=== PATIENT | male | born 1965 | race Caucasian/White ===

== ENCOUNTER 2019-03-27 03:22 | Inpatient (IN) ==
--- NOTE | 2019-03-27 07:53 | Internal Med History&Physical ---
Date of Encounter: 03/27/19 Time of Encounter: 07:17 Internal Medicine - H&P: HPI Chief complaint: Fever, cough Admitted From: Emergency Dept ([facility]) History of present illness: Lisa Cabral is a 53 M w hx HIV, MS c/b suprapubic cath, DVT/PE, anx/dep, who p/w fever. Pt states that yesterday he felt hot and sweaty, took temp and was 101. [place] listless/malaise all day and didn't even get on his computer, which he said was unusual. He Says he also developed a mild cough, productive of some green sputum. No sore throat, sinus pain or congestion, CP, palpitations, abd pain, N/V, myalgias, or leg pain or swelling. He endorses good compliance with his coumadin saying his home INR was 2.1 most recently. He does note having several infections in the past, mostly urine, but per review has had 2 different E coli bacteremias in the last 2 years resistant to both levaquin and ampicillin. Denies hx MRSA. In the ED, pt vitals T98.1, HR 112, RR 20, SBP 70s, satting 94-97% on RA. Labs notable for WBC 16, Hb 14, Na 127, Cl 94, Cr 0.85, lactate 1.4. UA w mod LE, >30 wbc, many bacteria. CXR showing L-sided airspace disease, and RLL atelectasis v infiltrate. Blood cultures obtained. Given NS 1L bolus as well as doses of azithro and rocephin. Prior to transfer, accepting physician requested doses of vanc/cefepime which were given prior to transfer. He follows at [facility] for his ID care w Dr Price, and at [facility] for his Neuro care w Dr Silveira. States compliant with his Sustiva/Epzicom regimen for HIV, and with his Copaxone for MS. Past medical, surgical, social, and family histories reviewed and updated as below. Former smoker. No FHx immunodeficiency. Past Med Surg Social Fam HX - Past Medical History Medical history: DVT, HIV/AIDS, hyperlipidemia, pulmonary embolus, other Additional medical history: Multiple sclerosis Psychiatric history: anxiety, depression - Past Surgical History Surgical History: other (Suprapubic catheter) Additional surgical history: Dental. Supera Pubic Cath - Social History Smoking Status: Former smoker Smokeless Tobacco Status: No Alcohol use: none Drug use: none Internal Medicine - H&P: Meds Abacavir Sulfate/Lamivudine [Epzicom Tablet] 1 each PO DAILY 09/15/15 [History] Alprazolam [Xanax] 2 mg PO HS 09/15/15 [History] Baclofen 30 mg PO QID 09/15/15 [History] Cholecalciferol (Vitamin D3) [Vitamin D3] 5,000 unit PO DAILY 09/15/15 [History] Docusate [Colace] 100 mg PO TID 09/15/15 [History] Efavirenz [Sustiva] 50 mg PO DAILY 09/15/15 [History] Gabapentin [Neurontin] 600 mg PO QID 09/15/15 [History] Paroxetine [Paxil] 20 mg PO DAILY 09/15/15 [History] Tizanidine HCl [Zanaflex] 4 mg PO HS 09/15/15 [History] Zolpidem [Ambien] 10 mg PO HS 09/15/15 [History] Ascorbic Acid [Vitamin C] 500 mg PO DAILY@0630 #30 tab 03/17/17 [Rx] Furosemide [Lasix] 40 mg PO DAILY 04/10/18 [History] Glatiramer Acetate [Copaxone] 40 mg SQ QMWF 04/10/18 [History] Oxycodone HCl/Acetaminophen [Percocet 5-325 mg Tablet] 1 each PO Q6H 04/10/18 [History] Ferrous Sulfate 325 mg PO 0630 #30 tablet 01/07/19 [Rx] Potassium Chloride 20 meq PO BID #120 tab.er.prt 01/07/19 [Rx] Warfarin [Coumadin] 3 mg PO DAILY@1800 tablet 01/07/19 [Rx] Lactobacillus [Culturelle] 1 each PO DAILY 03/27/19 [History] Allergy/AdvReac Type Severity Reaction Status Date / Time atorvastatin [From Lipitor] Allergy Muscle Pain Verified 03/02/19 01:26 levofloxacin [From Levaquin] Allergy Hives Verified 03/02/19 01:26 methocarbamol [From Robaxin] Allergy Hives Verified 03/02/19 01:26 All Systems PM: A 10-system review of systems was performed and is negative for pertinent findings except as documented above in the HPI. - Constitutional Vitals: Vital Signs Temp Pulse Resp BP Pulse Ox 03/27/19 09:41 97.6 F 89 16 107/69 94 Exam: General: NAD, good eye contact, well appearing, diaphoretic, lying comfortably in bed Head: Atraumatic, normocephalic. Face symmetric Eyes: EOMI, sclerae anicteric ENT: Mucous membranes dry. Normal oral mucosa and dentition. Trachea midline. No cervical lymphadenopathy Thoracic: No visible chest wall deformities. Does have R basilar crackles and coarse breath sounds Cardio: Normal S1 and S2, regular rhythm, tachycardic, no murmurs. Abdomen: Firm but not rigid, nontender, nondistended. No rebound. Suprapubic cath in place, site without erythema Extremities: Warm, well perfused. DP pulses 2+ b/l. No clubbing, cyanosis. No edema Skin: Intact. No rashes, bruises, or ulcers Neuro: Awake, fully oriented. Good memory, concentration, attention. Speech fluent. CN II-XII grossly intact. Bedbound, unable to roll over unassisted Internal Med - H&P Results - Labs CBC & Chem 7: 03/27/19 09:40 - Summary of Assessment and Plan Summary of Assessment and Plan: Lisa Cabral is a 53 M w hx HIV, MS, suprapubic cath, who p/w SOB, cough, tachycardia, hypotension, leukocytosis, CXR w L-sided infiltrate, concerning for severe sepsis caused by pneumonia in immunocompromised host. PNA: infection in immunocompromised host - UAg's for strep, legionella - serum Ag's for histo and crypto - procal, RVP, SpCx, MRSA nasal swab - empiric vanc and cefepime and azithro Severe Sepsis: SIRS 3/4 (afebrile), suspected infection as above, lactate wnl but hypotensive - BCx x2 pending - fluid boluses prn to maintain MAP>65 - empiric abx as above Hypovolemic hyponatremia: and hypochloremia, 2/2 dehydration, will recheck after fluids HIV: unknown control, denies AIDS defining illnesses, f/w Dr Price at [facility] - check [facility] records for most recent CD4 - check VL and CD4 - home epzicom and sustiva MS: f/w Dr Silveira at [facility], continue home copaxone tiw Urinary retention s/p suprapubic cath: noted Chronic pain: likely 2/2 MS and HIV, continue home perc 5 q6h, gabapentin 600 tid, will halve home baclofen 30 qid dose Anx/dep: home paxil 20, xanax 2 qhs DVT/PE: home warfarin, daily INRs Hx leg swelling: will hold home lasix and potassium PPx: warfarin Tele: no Activity: up ad tanmay FEN: cardiac, MIVF NS@125 x2L Lines: PIV Consults: Code: Full Dispo: obs for PNA and sepsis, anticipate 2-3 days, will be homegoing
[2019-03-27] MEDS ORDERED: Naloxone 0.4 MG/ML INJ IVP PRN (07:57)
[2019-03-27] MEDS ORDERED: Acetaminophen 325 MG TABLET PO PRN (07:57)
[2019-03-27] MEDS ORDERED: Ondansetron 4 MG/2 ML VIAL IVP PRN (07:57)
[2019-03-27] MEDS ORDERED: 0.9 % Sodium Chloride 1,000 ML IVC ONE (09:00)
[2019-03-27 09:52] LABS: Basophils # 0.1 K/mcL (0.0-0.2); Basophils % 0.7 %; Eosinophils # 0.5 K/mcL (0.0-0.6); Eosinophils % 4.7 %; Hematocrit 37.6 % (37.5-50.1); Immature Granulocytes % 0.3 % (0-4); Lymphocytes # 2.4 K/mcL (0.6-4.6); Lymphocytes % 22.9 %; Mean Corpuscular HGB Conc 34.6 g/dL (31.6-35.5); Mean Corpuscular Hemoglobin 30.9 pg (28.0-33.3); Mean Corpuscular Volume 89.3 fL (83.0-100.0); Monocytes # 0.7 K/mcL (0.0-1.3); Monocytes % 6.2 %; Neutrophils # 6.9 K/mcL (1.6-8.9); Platelet Count 304 K/mcL (140-400); Red Blood Count 4.21 M/mcL (4.19-5.50); Red Cell Distribution Width 13.5 % (11.5-14.5); Segmented Neutrophils % 65.2 %; White Blood Count 10.5 K/mcL (4.3-11.1)
[2019-03-27 10:17] LABS: Alanine Aminotransferase 16 Units/L (7-52); Albumin 3.6 g/dL (3.5-5.7); Albumin/Globulin Ratio 1.2 (1.1-2.2); Alkaline Phosphatase 61 Units/L (34-104); Aspartate Amino Transferase 13 Units/L (13-39); BUN/Creatinine Ratio 9 (6-26); Bilirubin,Direct 0.1 mg/dL (0.0-0.2); Bilirubin,Indirect 0.3 mg/dL (0.0-1.2); Bilirubin,Total 0.4 mg/dL (0.3-1.0); Blood Urea Nitrogen 7 mg/dL (6-20); Calcium 8.3 mg/dL (8.6-10.3); Carbon Dioxide 24 mEq/L (23-29); Chloride 99 mEq/L (98-107); Globulin 3.1 g/dL (2.4-3.5); Glucose 85 mg/dL (70-105); Osmolality,Calculated 267 (280-300); Potassium 3.5 mEq/L (3.5-5.1); Sodium 130 mEq/L (136-145); Total Protein 6.7 g/dL (6.4-8.9); eGFR For African Americans > 60 (> 60); eGFR For Non-African Americans > 60 (> 60)
[2019-03-27 10:30] LABS: Prothrombin Time 49.9 Seconds (9.4-12.1)
[2019-03-27 10:31] LABS: INR 4.4
[2019-03-27] MEDS: 0.9 % Sodium Chloride 1,000 ML IVC SCH ×2 (11:28→20:22)
[2019-03-27] MEDS: Cefepime HCl 2,000 MG in 0.9 % Sodium Chloride Mini Bag 100 ML IVPB SCH ×2 (13:01→20:23)
[2019-03-27 20:14] LABS: Adenovirus Not Detected (Not Detect); Bordetella Pertussis Not Detected (Not Detect); Chlamydophila pneumoniae Not Detected (Not Detect); Coronavirus 229E Not Detected (Not Detect); Coronavirus HKU1 Not Detected (Not Detect); Coronavirus NL63 Not Detected (Not Detect); Coronavirus OC43 Not Detected (Not Detect); Human Metapneumovirus Not Detected (Not Detect); Human Rhinovirus/Enterovirus Not Detected (Not Detect); Influenza A Subtype 2009 H1 Not Detected (Not Detect); Influenza A Untypeable Not Detected (Not Detect); Influenza B Not Detected (Not Detect); Mycoplasma pneumoniae Not Detected (Not Detect); Parainfluenza Virus 1 Not Detected (Not Detect); Parainfluenza Virus 2 Not Detected (Not Detect); Parainfluenza Virus 3 Not Detected (Not Detect); Parainfluenza Virus 4 Not Detected (Not Detect); Respiratory Syncytial Virus Not Detected (Not Detect)
[2019-03-27] MEDS: Gabapentin 300 MG CAPSULE PO SCH (23:22)
[2019-03-27] MEDS: Baclofen 10 MG TABLET PO SCH (23:22)
[2019-03-27] MEDS: ALPRAZolam 1 MG TABLET PO SCH (23:22)
[2019-03-28] MEDS: Cefepime HCl 2,000 MG in 0.9 % Sodium Chloride Mini Bag 100 ML IVPB SCH ×3 (03:53→19:50)
[2019-03-28] MEDS: *HR* OxyCODONE/APAP 5/325 TABLET PO PRN ×2 (04:42→19:51)
[2019-03-28 06:39] LABS: Basophils # 0.1 K/mcL (0.0-0.2); Basophils % 1.5 %; Eosinophils # 0.5 K/mcL (0.0-0.6); Eosinophils % 6.3 %; Hematocrit 37.6 % (37.5-50.1); Hemoglobin 12.8 g/dL (12.9-16.9); Immature Granulocytes % 0.3 % (0-4); Lymphocytes # 2.5 K/mcL (0.6-4.6); Lymphocytes % 34.6 %; Mean Corpuscular Volume 88.1 fL (83.0-100.0); Mean Platelet Volume 9.1 fL (9.4-12.4); Monocytes # 0.6 K/mcL (0.0-1.3); Monocytes % 8.2 %; Neutrophils # 3.5 K/mcL (1.6-8.9); Platelet Count 322 K/mcL (140-400); Red Blood Count 4.27 M/mcL (4.19-5.50); Red Cell Distribution Width 13.5 % (11.5-14.5); Segmented Neutrophils % 49.1 %; White Blood Count 7.2 K/mcL (4.3-11.1)
[2019-03-28 06:45] LABS: INR 3.8; Prothrombin Time 42.7 Seconds (9.4-12.1)
[2019-03-28 07:01] LABS: BUN/Creatinine Ratio 8 (6-26); Blood Urea Nitrogen 6 mg/dL (6-20); Calcium 8.4 mg/dL (8.6-10.3); Carbon Dioxide 21 mEq/L (23-29); Chloride 107 mEq/L (98-107); Glucose 108 mg/dL (70-105); Magnesium 2.1 mg/dL (1.6-2.6); Osmolality,Calculated 280 (280-300); Potassium 3.2 mEq/L (3.5-5.1); Sodium 136 mEq/L (136-145); eGFR For African Americans > 60 (> 60); eGFR For Non-African Americans > 60 (> 60)
[2019-03-28] MEDS: Baclofen 10 MG TABLET PO SCH ×4 (07:58→19:52)
[2019-03-28] MEDS: Gabapentin 300 MG CAPSULE PO SCH ×3 (07:58→19:51)
[2019-03-28] MEDS ORDERED: Aminoglycoside Consult 1 EACH MC ONE (08:28)
[2019-03-28] MEDS ORDERED: LAMIVUDINE PO SCH (09:00)
[2019-03-28] MEDS ORDERED: ABACAVIR SULFATE PO SCH (09:00)
[2019-03-28] MEDS ORDERED: Azithromycin 250 MG TABLET PO SCH (09:00)
[2019-03-28] MEDS ORDERED: EFAVIRENZ 600 MG PO SCH (09:00)
--- NOTE | 2019-03-28 10:50 | Internal Med Progress Note ---
Hospitalist Progress Note - Encounter Date of Encounter: 03/28/19 Time of Encounter: 10:48 - Subjective Interval History: I have seen and evaluated the patient at bedside. Patient reported feeling better today. denies nausea, vomiting or abdominal pain. denies chest pain or shortness of breath. - Exam Vitals: Temp Pulse Resp BP Pulse Ox 97.9 F 92 16 126/77 95 03/28/19 06:41 03/28/19 06:41 03/28/19 06:41 03/28/19 06:41 03/28/19 08:12 Exam: Vitals: Reviewed General: Alert and oriented x4. In no distress Cardiovascular: RRR, normal S1 & S2, no rubs, murmurs or gallops. Lungs: CTA b/l, no wheezes or crackles. Abdomen: Soft, non-tender, no rigidity. suprapubic cath. Extremities: paraplegic. Neurological: No focal neurological abnormalities Pulses:Carotid and radial pulses normal +2. Rest of the physical exam is non contributory - Assessment and Plan (1) Hx of pulmonary embolus Current Visit: Yes Status: Chronic (2) Multiple sclerosis Current Visit: Yes Status: Chronic (3) Hx of deep venous thrombosis Current Visit: Yes Status: Chronic (4) Depression Current Visit: Yes Status: Chronic (5) HIV (human immunodeficiency virus infection) Current Visit: Yes Status: Chronic (6) Anemia Current Visit: No Status: Chronic (7) Pneumonia Current Visit: No Status: Resolved (8) Urinary tract infection Current Visit: No Status: Acute - Summary of Assessment and Plan Summary of Assessment and Plan: 53 M w hx HIV, MS c/b suprapubic cath, DVT/PE, anx/dep, who p/w fever. Pt states that yesterday he felt hot and sweaty, took temp and was 101. Assessment: 1. UTI 2. Pneumonia 3. HIV 4. Hx of DVT and PE 5. Depression 6. HLD 7. Hypokalemia 8. MS 9. VTE prophylaxis 10. Sepsis (resolved) Plan: urine culture: growing gram negative autumn blood culture ordered urine for atypical negative sputum culture: bacteria observed, gram positive cocci, preliminary report continue cefepime 2gm/IV Q8HRs dc vancomycin and azithromycin c/w incentive spirometry continue home HIV medications on Warfarin for Hx of DVT and PE. INR therapeutic PT/OT ordered electrolyte replaced. will check potassium level tomorrow morning. Plan: Patient to remain in the hospital on broad spectrum IV antibiotics. - Time Spent with Patient Total time spent is greater than 50% in coordination of care (as documented) at patient's floor/unit and/or counseling patient: Greater than 35 minutes (40) Plan of Care Discussed with: patient (and the nurse.) Internal Medicine: Result - Labs CBC & Chem 7: 03/28/19 05:59 03/28/19 05:59 Labs: Short CBC 03/28/19 Range/Units 05:59 WBC 7.2 (4.3-11.1) K/mcL Hgb 12.8 L (12.9-16.9) g/dL Hct 37.6 (37.5-50.1) % Plt Count 322 (140-400) K/mcL Neutrophils # 3.5 (1.6-8.9) K/mcL BMP 03/28/19 05:59 Sodium 136 Potassium 3.2 L Chloride 107 Carbon Dioxide 21 L BUN 6 Creatinine 0.72 Glucose 108 H Calcium 8.4 L - ABG Interpretation ABG results: PT/INR, D-dimer PT 42.7 Seconds (9.4-12.1) H 03/28/19 05:59 Consult Discharge Plan - Plan Referrals: Carmen Espinal MD [Primary Care Provider] - (4) Depression Qualifiers: Depression Type: unspecified Qualified Code(s): F32.9 - Major depressive disorder, single episode, unspecified (5) HIV (human immunodeficiency virus infection) Qualifiers: HIV symptom status: asymptomatic Qualified Code(s): Z21 - Asymptomatic human immunodeficiency virus [HIV] infection status (6) Anemia Qualifiers: Anemia type: iron deficiency Iron deficiency anemia type: unspecified iron deficiency Qualified Code(s): D50.9 - Iron deficiency anemia, unspecified (7) Pneumonia Qualifiers: Pneumonia type: due to unspecified organism Laterality: bilateral Lung location: unspecified part of lung Qualified Code(s): J18.9 - Pneumonia, unspecified organism (8) Urinary tract infection Qualifiers: Urinary tract infection type: catheter-associated UTI Indwelling urinary catheter type: indwelling urethral catheter Encounter type: initial encounter Qualified Code(s): T83.511A - Infection and inflammatory reaction due to indwelling urethral catheter, initial encounter; N39.0 - Urinary tract infection, site not specified
[2019-03-28] MEDS ORDERED: Warfarin perPT PO PRN (18:00)
[2019-03-28] MEDS: EFAVIRENZ 600 MG PO SCH (18:40)
[2019-03-28] MEDS: LAMIVUDINE PO SCH (18:41)
[2019-03-28] MEDS: ABACAVIR PO SCH (18:41)
[2019-03-28] MEDS: ALPRAZolam 1 MG TABLET PO SCH (19:51)
[2019-03-29] MEDS: Cefepime HCl 2,000 MG in 0.9 % Sodium Chloride Mini Bag 100 ML IVPB SCH ×2 (03:18→11:17)
[2019-03-29] MEDS: *HR* OxyCODONE/APAP 5/325 TABLET PO PRN ×3 (03:22→22:30)
[2019-03-29 04:40] LABS: Basophils # 0.1 K/mcL (0.0-0.2); Basophils % 1.4 %; Eosinophils # 0.3 K/mcL (0.0-0.6); Eosinophils % 4.4 %; Hemoglobin 12.8 g/dL (12.9-16.9); Immature Granulocytes % 0.4 % (0-4); Lymphocytes # 2.8 K/mcL (0.6-4.6); Lymphocytes % 40.2 %; Mean Corpuscular HGB Conc 34.6 g/dL (31.6-35.5); Mean Corpuscular Hemoglobin 30.2 pg (28.0-33.3); Mean Corpuscular Volume 87.3 fL (83.0-100.0); Mean Platelet Volume 8.9 fL (9.4-12.4); Monocytes # 0.7 K/mcL (0.0-1.3); Monocytes % 9.7 %; Neutrophils # 3.1 K/mcL (1.6-8.9); Platelet Count 352 K/mcL (140-400); Red Blood Count 4.24 M/mcL (4.19-5.50); Red Cell Distribution Width 13.4 % (11.5-14.5); Segmented Neutrophils % 43.9 %
[2019-03-29 04:47] LABS: INR 3.6; Prothrombin Time 40.8 Seconds (9.4-12.1)
[2019-03-29 04:59] LABS: BUN/Creatinine Ratio 7 (6-26); Blood Urea Nitrogen 5 mg/dL (6-20); Carbon Dioxide 24 mEq/L (23-29); Chloride 103 mEq/L (98-107); Glucose 101 mg/dL (70-105); Magnesium 2.1 mg/dL (1.6-2.6); Osmolality,Calculated 275 (280-300); Phosphorous 2.8 mg/dL (2.7-4.5); Potassium 3.1 mEq/L (3.5-5.1); Sodium 134 mEq/L (136-145); eGFR For African Americans > 60 (> 60); eGFR For Non-African Americans > 60 (> 60)
[2019-03-29] MEDS: Baclofen 10 MG TABLET PO SCH ×4 (09:21→22:29)
[2019-03-29] MEDS: Gabapentin 300 MG CAPSULE PO SCH ×3 (09:22→22:29)
[2019-03-29] MEDS: Glatiramer Acetate [Copaxone] 40 MG SQ SCH ×2 (09:33→18:03)
[2019-03-29] MEDS: ALPRAZolam 1 MG TABLET PO PRN (11:17)
--- NOTE | 2019-03-29 11:51 | Internal Med Progress Note ---
Hospitalist Progress Note - Encounter Date of Encounter: 03/29/19 Time of Encounter: 11:44 - Subjective Interval History: I have seen and evaluated the patient at bedside. Patient reported feeling better today. denies chest pain, abdominal pain, nausea or vomiting. - Exam Vitals: Temp Pulse Resp BP Pulse Ox 97.4 F L 81 18 148/87 96 03/29/19 10:50 03/29/19 10:50 03/29/19 10:50 03/29/19 10:50 03/29/19 10:50 Exam: Vitals: Reviewed General: Alert and oriented x4. In no distress Cardiovascular: RRR, normal S1 & S2, no rubs, murmurs or gallops. Lungs: CTA b/l, no wheezes or crackles. Abdomen: Soft, non-tender, no rigidity. suprapubic cath. NABS in all 4 sarah drants, Extremities: paraplegic. Neurological: No acute focal neurological abnormalities Rest of the physical exam is non contributory - Assessment and Plan (1) Hx of pulmonary embolus Current Visit: Yes Status: Chronic (2) Multiple sclerosis Current Visit: Yes Status: Chronic (3) Hx of deep venous thrombosis Current Visit: Yes Status: Chronic (4) Depression Current Visit: Yes Status: Chronic (5) HIV (human immunodeficiency virus infection) Current Visit: Yes Status: Chronic (6) Anemia Current Visit: No Status: Chronic (7) Pneumonia Current Visit: No Status: Resolved (8) Urinary tract infection Current Visit: No Status: Acute - Summary of Assessment and Plan Summary of Assessment and Plan: 53 M w hx HIV, MS c/b suprapubic cath, DVT/PE, anx/dep, who p/w fever. Pt states that yesterday he felt hot and sweaty, took temp and was 101. Assessment: 1. UTI 2. Pneumonia 3. HIV 4. Hx of DVT and PE 5. Depression 6. HLD 7. Hypokalemia 8. MS 9. VTE prophylaxis 10. Sepsis (resolved) Plan: urine culture: Serratia marcescens, pansensitive blood culture: no growth to date sputum culture: bacteria observed, gram positive cocci, preliminary report: pending final dc cefepime 2gm/IV Q8HRs started on ceftriaxone 1gm/IV daily. on incentive spirometry c/w home HIV medications c/w Warfarin for Hx of DVT and PE. INR therapeutic daily pt/ot electrolyte replaced. Plan: Patient to remain in the hospital on broad spectrum IV antibiotics, pending sputum culture final report. - Time Spent with Patient Total time spent is greater than 50% in coordination of care (as documented) at patient's floor/unit and/or counseling patient: Greater than 35 minutes (45) Plan of Care Discussed with: patient (and the nurse.) Internal Medicine: Result - Labs CBC & Chem 7: 03/29/19 03:56 03/29/19 03:56 Labs: Short CBC 03/29/19 Range/Units 03:56 WBC 7.0 (4.3-11.1) K/mcL Hgb 12.8 L (12.9-16.9) g/dL Hct 37.0 L (37.5-50.1) % Plt Count 352 (140-400) K/mcL Neutrophils # 3.1 (1.6-8.9) K/mcL BMP 03/29/19 03:56 Sodium 134 L Potassium 3.1 L Chloride 103 Carbon Dioxide 24 BUN 5 L Creatinine 0.75 Glucose 101 Calcium 9.0 - ABG Interpretation ABG results: PT/INR, D-dimer PT 40.8 Seconds (9.4-12.1) H 03/29/19 03:56 Consult Discharge Plan - Plan Referrals: Carmen Espinal MD [Primary Care Provider] - (4) Depression Qualifiers: Depression Type: unspecified Qualified Code(s): F32.9 - Major depressive disorder, single episode, unspecified (5) HIV (human immunodeficiency virus infection) Qualifiers: HIV symptom status: asymptomatic Qualified Code(s): Z21 - Asymptomatic human immunodeficiency virus [HIV] infection status (6) Anemia Qualifiers: Anemia type: iron deficiency Iron deficiency anemia type: unspecified iron deficiency Qualified Code(s): D50.9 - Iron deficiency anemia, unspecified (7) Pneumonia Qualifiers: Pneumonia type: due to unspecified organism Laterality: bilateral Lung location: unspecified part of lung Qualified Code(s): J18.9 - Pneumonia, unspecified organism (8) Urinary tract infection Qualifiers: Urinary tract infection type: catheter-associated UTI Indwelling urinary catheter type: indwelling urethral catheter Encounter type: initial encounter Qualified Code(s): T83.511A - Infection and inflammatory reaction due to indwelling urethral catheter, initial encounter; N39.0 - Urinary tract infection, site not specified
[2019-03-29] MEDS ORDERED: Sennosides/Docusate Sodium TABLET PO PRN (11:54)
[2019-03-29] MEDS ORDERED: cefTRIAXone 1,000 MG in Water for inj. (sterile) 10 ML IVP SCH ×2 (12:00→20:00)
[2019-03-29 15:37] LABS: CD3 Percent 79 % (62-87); CD8 Percent 64 % (15-46)
[2019-03-29 16:20] LABS: Acinetobacter baumannii by PCR Not Detected (Not Detect); Enterobacter cloacae Cmplx PCR Not Detected (Not Detect); Enterobacteriaceae by PCR Not Detected (Not Detect); Enterococcus by PCR Not Detected (Not Detect); Escherichia coli by PCR Not Detected (Not Detect); Klebsiella oxytoca by PCR Not Detected (Not Detect); Klebsiella pneumoniae by PCR Not Detected (Not Detect); Proteus by PCR Not Detected (Not Detect); Pseudomonas aeruginosa by PCR Not Detected (Not Detect); Serratia marcescens by PCR Not Detected (Not Detect); Staphylococcus aureus by PCR Not Detected (Not Detect); Staphylococcus by PCR DETECTED (Not Detect); Streptococcus agalactiae(B)PCR Not Detected (Not Detect); Streptococcus by PCR Not Detected (Not Detect); Streptococcus pneumoniae PCR Not Detected (Not Detect); Streptococcus pyogenes (A) PCR Not Detected (Not Detect); blaKPC Carbapenem-Resist Gene Not Detected (Not Detect); mecA Methicillin-Resist Gene Not Detected (Not Detect); vanA/B Vancomycin-Resist Genes Not Detected (Not Detect)
[2019-03-29 16:21] LABS: Candida albicans by PCR Not Detected (Not Detect); Candida glabrata by PCR Not Detected (Not Detect); Candida krusei by PCR Not Detected (Not Detect); Candida parapsilosis by PCR Not Detected (Not Detect); Candida tropicalis by PCR Not Detected (Not Detect)
[2019-03-29] MEDS: ABACAVIR PO SCH (17:16)
[2019-03-29] MEDS: EFAVIRENZ 600 MG PO SCH (17:16)
[2019-03-29] MEDS: LAMIVUDINE PO SCH (17:16)
[2019-03-29] MEDS ORDERED: *HR* Warfarin 1 MG TABLET PO SCH (18:00)
[2019-03-29] MEDS: carBAMazepine 200 MG TABLET PO SCH (22:29)
[2019-03-30] MEDS: ALPRAZolam 1 MG TABLET PO PRN ×2 (00:30→23:14)
[2019-03-30 04:28] LABS: INR 2.7; Prothrombin Time 30.6 Seconds (9.4-12.1)
[2019-03-30] MEDS: carBAMazepine 200 MG TABLET PO SCH ×2 (07:42→20:14)
[2019-03-30] MEDS: Gabapentin 300 MG CAPSULE PO SCH ×3 (07:42→20:14)
[2019-03-30] MEDS: Baclofen 10 MG TABLET PO SCH ×4 (07:42→20:14)
[2019-03-30] MEDS: cefTRIAXone 2,000 MG in 0.9 % Sodium Chloride Mini Bag 100 ML IVPB SCH (08:54)
[2019-03-30] MEDS ORDERED: Furosemide 20 MG TABLET PO SCH (09:00)
[2019-03-30] MEDS: *HR* OxyCODONE/APAP 5/325 TABLET PO PRN ×2 (11:45→23:18)
--- NOTE | 2019-03-30 14:07 | Internal Med Progress Note ---
Hospitalist Progress Note - Encounter Date of Encounter: 03/30/19 Time of Encounter: 14:01 - Subjective Interval History: I have seen and evaluated the patient at bedside. patient reported feeling well. denies chest pain, shortness of breath, abdominal pain, nausea or vomiting. - Exam Vitals: Temp Pulse Resp BP Pulse Ox 98.4 F 98 16 100/63 98 03/30/19 10:59 03/30/19 10:59 03/30/19 10:59 03/30/19 10:59 03/30/19 10:59 Exam: Vitals: Reviewed General: Alert and oriented x4. In no distress Cardiovascular: RRR, normal S1 & S2, no rubs, murmurs or gallops. Lungs: CTA b/l, no wheezes or crackles. Abdomen: Soft, non-tender, no rigidity. suprapubic cath. Extremities: paraplegic. Neurological: No acute focal neurological abnormalities Rest of the physical exam is non contributory - Assessment and Plan (1) Hx of pulmonary embolus Current Visit: Yes Status: Chronic (2) Multiple sclerosis Current Visit: Yes Status: Chronic (3) Hx of deep venous thrombosis Current Visit: Yes Status: Chronic (4) Depression Current Visit: Yes Status: Chronic (5) HIV (human immunodeficiency virus infection) Current Visit: Yes Status: Chronic (6) Anemia Current Visit: No Status: Chronic (7) Pneumonia Current Visit: No Status: Resolved (8) Urinary tract infection Current Visit: No Status: Acute - Summary of Assessment and Plan Summary of Assessment and Plan: 53 M w hx HIV, MS c/b suprapubic cath, DVT/PE, anx/dep, who p/w fever. Pt states that yesterday he felt hot and sweaty, took temp and was 101. Assessment: 1. UTI 2. Pneumonia 3. HIV 4. Hx of DVT and PE 5. Depression 6. HLD 7. Hypokalemia 8. MS 9. VTE prophylaxis 10. Sepsis (resolved) 11. Bacteremia (possible contaminant?) Plan: urine culture: Serratia marcescens, rod-sensitive blood culture: one bottle first set growing gram positive cocci. not S.aureus sputum culture: klebsiella aeorgenes and serratia marcescens - repeat blood culture - c/w ceftriaxone 2gm/IV daily - c/w incentive spirometry - on his home HIV medications - Patient on farin INR therapeutic - hold home dose of furosemide, BP running in the low 100s and a total negative balance of 8 litters reported. - I do not believe this urinary output is accurate. - c/w daily pt/ot - daily potassium added Plan: Patient to remain in the hospital on broad spectrum IV antibiotics, due to bacteremia. possible dc tomorrow. - Time Spent with Patient Total time spent is greater than 50% in coordination of care (as documented) at patient's floor/unit and/or counseling patient: Greater than 35 minutes (40) Plan of Care Discussed with: patient (and the nurse.) Internal Medicine: Result - Labs CBC & Chem 7: 03/29/19 03:56 03/29/19 03:56 - ABG Interpretation ABG results: PT/INR, D-dimer PT 30.6 Seconds (9.4-12.1) H 03/30/19 04:01 - Impressions Impressions Echocardiogram Limited Views 03/30/19 07:36 Impressions: LVEF 65%. Normal right ventricular structure and function. Heart valves not well assessed. Left Ventricular Wall Motion: Rest Echo Findings All wall segments showed normal motion. Findings: Study Quality * Technically adequate exam. ECG Findings * Normal sinus rhythm. Left Ventricle * LVEF 65%. * Normal LV chamber size, wall thickness and systolic function. Right Ventricle * Normal right ventricular structure and function. Left Atrium * Normal left atrial size. Right Atrium * Normal right atrial size. Tricuspid Valve * Estimated RA pressure is 3 mmHg. IVC * The IVC is dilated. * > 50% respiratory change Device lead * A device lead was visualized in the right atrium and right ventricle. Consult Discharge Plan - Plan Referrals: Carmen Espinal MD [Primary Care Provider] - (4) Depression Qualifiers: Depression Type: unspecified Qualified Code(s): F32.9 - Major depressive disorder, single episode, unspecified (5) HIV (human immunodeficiency virus infection) Qualifiers: HIV symptom status: asymptomatic Qualified Code(s): Z21 - Asymptomatic human immunodeficiency virus [HIV] infection status (6) Anemia Qualifiers: Anemia type: iron deficiency Iron deficiency anemia type: unspecified iron deficiency Qualified Code(s): D50.9 - Iron deficiency anemia, unspecified (7) Pneumonia Qualifiers: Pneumonia type: due to unspecified organism Laterality: bilateral Lung location: unspecified part of lung Qualified Code(s): J18.9 - Pneumonia, unspecified organism (8) Urinary tract infection Qualifiers: Urinary tract infection type: catheter-associated UTI Indwelling urinary catheter type: indwelling urethral catheter Encounter type: initial encounter Qualified Code(s): T83.511A - Infection and inflammatory reaction due to indwelling urethral catheter, initial encounter; N39.0 - Urinary tract infection, site not specified
[2019-03-30] MEDS ORDERED: *HR* Warfarin 3 MG TABLET PO ONE (18:00)
[2019-03-30] MEDS: ABACAVIR PO SCH (18:46)
[2019-03-30] MEDS: LAMIVUDINE PO SCH (18:46)
[2019-03-30] MEDS: EFAVIRENZ 600 MG PO SCH (18:46)
[2019-03-30] MEDS ORDERED: cefTRIAXone 2,000 MG in Water for inj. (sterile) 10 ML IVP SCH (20:00)
[2019-03-31] MEDS: ALPRAZolam 1 MG TABLET PO PRN (04:24)
[2019-03-31 05:04] LABS: INR 1.9; Prothrombin Time 21.6 Seconds (9.4-12.1)
[2019-03-31 08:21] LABS: Basophils # 0.1 K/mcL (0.0-0.2); Basophils % 1.7 %; Eosinophils # 0.3 K/mcL (0.0-0.6); Eosinophils % 4.1 %; Hematocrit 39.4 % (37.5-50.1); Hemoglobin 13.9 g/dL (12.9-16.9); Immature Granulocytes % 0.8 % (0-4); Lymphocytes # 2.9 K/mcL (0.6-4.6); Lymphocytes % 44.4 %; Mean Corpuscular HGB Conc 35.3 g/dL (31.6-35.5); Mean Corpuscular Hemoglobin 30.2 pg (28.0-33.3); Mean Corpuscular Volume 85.7 fL (83.0-100.0); Mean Platelet Volume 8.4 fL (9.4-12.4); Monocytes # 0.7 K/mcL (0.0-1.3); Monocytes % 10.1 %; Neutrophils # 2.6 K/mcL (1.6-8.9); Platelet Count 337 K/mcL (140-400); Red Cell Distribution Width 13.4 % (11.5-14.5); Segmented Neutrophils % 38.9 %; White Blood Count 6.6 K/mcL (4.3-11.1)
[2019-03-31] MEDS: Baclofen 10 MG TABLET PO SCH ×2 (08:22→13:19)
[2019-03-31] MEDS: carBAMazepine 200 MG TABLET PO SCH (08:22)
[2019-03-31] MEDS: Gabapentin 300 MG CAPSULE PO SCH (08:22)
[2019-03-31] MEDS: cefTRIAXone 2,000 MG in 0.9 % Sodium Chloride Mini Bag 100 ML IVPB SCH (08:23)
[2019-03-31] MEDS: *HR* OxyCODONE/APAP 5/325 TABLET PO PRN (08:36)
[2019-03-31 08:43] LABS: Alanine Aminotransferase 10 Units/L (7-52); Albumin 4.1 g/dL (3.5-5.7); Albumin/Globulin Ratio 1.2 (1.1-2.2); Alkaline Phosphatase 63 Units/L (34-104); Aspartate Amino Transferase 11 Units/L (13-39); BUN/Creatinine Ratio 11 (6-26); Bilirubin,Total 0.3 mg/dL (0.3-1.0); Blood Urea Nitrogen 8 mg/dL (6-20); Calcium 9.4 mg/dL (8.6-10.3); Carbon Dioxide 23 mEq/L (23-29); Chloride 101 mEq/L (98-107); Globulin 3.3 g/dL (2.4-3.5); Glucose 94 mg/dL (70-105); Magnesium 2.2 mg/dL (1.6-2.6); Osmolality,Calculated 274 (280-300); Potassium 3.3 mEq/L (3.5-5.1); Sodium 133 mEq/L (136-145); Total Protein 7.4 g/dL (6.4-8.9); eGFR For African Americans > 60 (> 60); eGFR For Non-African Americans > 60 (> 60)
[2019-03-31 10:04] LABS: HIV-1 Viral Load Interp NOT DETECTED (Not Detected)
--- NOTE | 2019-03-31 10:12 | Discharge Summary ---
- NOTES TO OUTPATIENT PROVIDER Notes to Outpatient Provider: Post hospital discharge with sepsis, secondary to pneumonia patient's sputum positive for Serratia and Klebsiella pansensitive patient will need repeat INR in 1 week will be discharged home on Bactrim DS Orders not resulted at time of discharge: Pending orders 03/27/19 09:03 [id number],BW Stat 03/27/19 09:40 Histoplasma Antigen Stat 03/28/19 10:43 Culture,Blood [BC] Stat 03/30/19 07:58 Culture,Blood [BC] Stat Date of Encounter: 03/31/19 Time of Encounter: 10:06 - Discharge Diagnosis (1) Sepsis due to Serratia species without acute organ dysfunction Priority: Primary Status: Acute Assessment and Plan: Was treated with ceftriaxone, attributed to his pneumonia sputum culture revealed Klebsiella and Serratia pansensitive with discharge on Bactrim DS, initial blood culture revealed staph epi however repeat blood cultures remain negative (2) Pneumonia Priority: Primary Status: Resolved Assessment and Plan: Resolved, 94% on room air, afebrile Was treated with ceftriaxone, attributed to his pneumonia sputum culture revealed Klebsiella and Serratia pansensitive with discharge on Bactrim DS, initial blood culture revealed staph epi however repeat blood cultures remain negative Qualifiers: Pneumonia type: due to unspecified organism Laterality: bilateral Lung location: unspecified part of lung Qualified Code(s): J18.9 - Pneumonia, unspecified organism (3) Hx of pulmonary embolus Priority: Secondary Status: Chronic Assessment and Plan: Resume warfarin INR 1.9 discharge however being discharged on Bactrim DS for 14 days repeat INR in 1 week from today results to be called into primary care physician (4) Multiple sclerosis Priority: Secondary Status: Chronic Assessment and Plan: Stable and chronic (5) Hx of deep venous thrombosis Priority: Secondary Status: Chronic Assessment and Plan: Continue warfarin INR at discharge 1. 9 repeat INR one week from today since he is discharged on Bactrim DS (6) Depression Priority: Secondary Status: Chronic Assessment and Plan: Stable and chronic Qualifiers: Depression Type: unspecified Qualified Code(s): F32.9 - Major depressive disorder, single episode, unspecified (7) HIV (human immunodeficiency virus infection) Priority: Secondary Status: Chronic Assessment and Plan: Continue to encourage HAART therapy CD 403 on admission Qualifiers: HIV symptom status: asymptomatic Qualified Code(s): Z21 - Asymptomatic human immunodeficiency virus [HIV] infection status (8) Hypokalemia Priority: Secondary Status: Acute Assessment and Plan: Supplemented orally Hospital course: Mr. Cabral is a 53 year old male was hospitalized for fever and cough related to have pneumonia patient initially met criteria for sepsis. He was placed on empiric antimicrobial coverage. He is sputum culture revealed Klebsiella and Serratia and he is blood culture revealed staph epi. Repeat blood cultures was negative patient will be discharged on Bactrim DS for 14 days given his history of HIV. He will need repeat INR in 1 week with results called into his PCP Discharge discussed with: patient, nurse - Time Spent with Patient Total time spent providing and/or coordinating discharge services: 35 mins Specific discharge activities: Please take all medications as prescribed, you are to repeat her INR in 1 week - Discharge Medications Prescriptions: New Sulfamethoxazole/Trimeth DS [Bactrim DS] 1 each PO BID 14 Days #28 tablet Continued Amitriptyline [Elavil] 10 mg PO HS Biotin 1 mg PO DAILY carBAMazepine [Tegretol] 200 mg PO BID Cranberry Fruit Extract [Cranberry] 250 mg PO DAILY Diclofenac Sodium [Voltaren] 1 applic TP 3-4XD PRN PRN Reason: Pain Efavirenz 600 mg PO DAILY Furosemide [Lasix] 20 mg PO DAILY Potassium Chloride [K-Tab ER] 20 meq PO BID Warfarin [Coumadin] 3 mg PO Q48H Warfarin Sodium 2 mg PO Q48H Zolpidem [Ambien] 10 mg PO HS Abacavir Sulfate/Lamivudine [Epzicom Tablet] 1 each PO DAILY Baclofen 30 mg PO QID PRN PRN Reason: MUSCLE TIGHTNESS Alprazolam [Xanax] 2 mg PO TID PRN PRN Reason: Anxiety Cholecalciferol (Vitamin D3) [Vitamin D3] 5,000 unit PO DAILY Docusate [Colace] 200 mg PO BID Paroxetine [Paxil] 20 mg PO DAILY Gabapentin [Neurontin] 1,200 mg PO TID Ascorbic Acid [Vitamin C] 500 mg PO DAILY@0630 #30 tab Oxycodone HCl/Acetaminophen [Percocet 5-325 mg Tablet] 1 tab PO Q6H PRN PRN Reason: Pain Glatiramer Acetate [Copaxone] 40 mg SQ QMWF Ferrous Sulfate 325 mg PO 0630 #30 tablet Lactobacillus [Culturelle] 1 each PO DAILY Home Medications: Abacavir Sulfate/Lamivudine [Epzicom Tablet] 1 each PO DAILY 09/15/15 [History] Alprazolam [Xanax] 2 mg PO TID PRN 09/15/15 [History] Baclofen 30 mg PO QID PRN 09/15/15 [History] Cholecalciferol (Vitamin D3) [Vitamin D3] 5,000 unit PO DAILY 09/15/15 [History] Docusate [Colace] 200 mg PO BID 09/15/15 [History] Gabapentin [Neurontin] 1,200 mg PO TID 09/15/15 [History] Paroxetine [Paxil] 20 mg PO DAILY 09/15/15 [History] Zolpidem [Ambien] 10 mg PO HS 09/15/15 [History] Ascorbic Acid [Vitamin C] 500 mg PO DAILY@0630 #30 tab 03/17/17 [Rx] Glatiramer Acetate [Copaxone] 40 mg SQ QMWF 04/10/18 [History] Oxycodone HCl/Acetaminophen [Percocet 5-325 mg Tablet] 1 tab PO Q6H PRN 04/10/18 [History] Ferrous Sulfate 325 mg PO 0630 #30 tablet 01/07/19 [Rx] Lactobacillus [Culturelle] 1 each PO DAILY 03/27/19 [History] Amitriptyline [Elavil] 10 mg PO HS 03/28/19 [History] Biotin 1 mg PO DAILY 03/28/19 [History] Cranberry Fruit Extract [Cranberry] 250 mg PO DAILY 03/28/19 [History] Diclofenac Sodium [Voltaren] 1 applic TP 3-4XD PRN 03/28/19 [History] Efavirenz 600 mg PO DAILY 03/28/19 [History] Furosemide [Lasix] 20 mg PO DAILY 03/28/19 [History] Potassium Chloride [K-Tab ER] 20 meq PO BID 03/28/19 [History] Warfarin Sodium 2 mg PO Q48H 03/28/19 [History] Warfarin [Coumadin] 3 mg PO Q48H 03/28/19 [History] carBAMazepine [Tegretol] 200 mg PO BID 03/28/19 [History] Sulfamethoxazole/Trimeth DS [Bactrim DS] 1 each PO BID 14 Days #28 tablet 03/31/19 [Rx] Allergies/Adverse Reactions: Allergy/AdvReac Type Severity Reaction Status Date / Time atorvastatin [From Lipitor] Allergy Muscle Pain Verified 03/02/19 01:26 levofloxacin [From Levaquin] Allergy Hives Verified 03/02/19 01:26 methocarbamol [From Robaxin] Allergy Hives Verified 03/02/19 01:26 Date of admission: 03/27/19 11:21 Primary care physician: Carmen Espinal MD Consults: 03/28/19 10:58 Consult to Physical Therapy [CONS] Routine Comment: Evaluate, develop and implement POC Reason for Consult: paraplegic. weakness Does patient have active BEDREST order?: No Is patient medically & hemodynamically stable?: Yes 03/30/19 08:47 Consult to Nurse Navigator [CONS] Routine Comment: pn Discharging clinician: Aaron Moraes Anticipated date of discharge: 03/31/19 - Constitutional Vitals: Temp Pulse Resp BP Pulse Ox 97.7 F 70 16 102/71 94 03/31/19 08:06 03/31/19 08:06 03/31/19 08:06 03/31/19 08:06 03/31/19 08:06 Exam: GEN: NAD, A&O x 3, Pleasant and conversant SKIN: [place] warm acyanotic not jaundice, vitiligo noted HEART: RRR, no murmurs LUNGS: CTA no wheeze or crackles, overall non labored ABDOMEN; Soft, non tender or distended, BS x 4 normactive EXT: No LE edema, significant lower extremity muscle atrophy noted bilaterally, Pedal pulses 1+, radial pulses 2+ PSYCH: Mood and affect is appropriate - Patient Status Disposition: Home Health Service Condition: Fair - Discharge Instructions Instructions: Sepsis (DC) Follow Up With: Carmen Espinal MD [Primary Care Provider] - - Diet and Activity Activity: as per physical therapy, resume usual activities as tolerated Diet: low fat, low cholesterol, low salt diet
[2019-03-31] MEDS: Glatiramer Acetate [Copaxone] 40 MG SQ SCH (10:50)
--- NOTE | 2019-03-31 10:53 | Physician Discharge Referral ---
Home Health/Hosp Referral Info Transfer to: Home Health Provider in Charge Post Discharge: PCP - Diagnosis (1) Sepsis due to Serratia species without acute organ dysfunction Priority: Primary Status: Acute (2) Pneumonia Priority: Primary Status: Resolved (3) Hx of pulmonary embolus Priority: Secondary Status: Chronic (4) Multiple sclerosis Priority: Secondary Status: Chronic (5) Hx of deep venous thrombosis Priority: Secondary Status: Chronic (6) Depression Priority: Secondary Status: Chronic (7) HIV (human immunodeficiency virus infection) Priority: Secondary Status: Chronic (8) Hypokalemia Priority: Secondary Status: Acute - Respiratory Orders Smoking Cessation: Smoking cessation has been advised. For more information, call the [place] Tobacco Quit Line at 4-855-ETGJ-NOW. - Diet/Nutrition Diet/Nutrition Orders: Cardiac - Activity Activity Orders: Up ad tanmay - Services Needed Following services are medically necessary services: Home Health Aide, Physical Therapy - Transfer Medications Prescriptions: Sulfamethoxazole/Trimeth DS [Bactrim DS] 1 each PO BID 14 Days #28 tablet Home Medications: Abacavir Sulfate/Lamivudine [Epzicom Tablet] 1 each PO DAILY 09/15/15 [History] Alprazolam [Xanax] 2 mg PO TID PRN 09/15/15 [History] Baclofen 30 mg PO QID PRN 09/15/15 [History] Cholecalciferol (Vitamin D3) [Vitamin D3] 5,000 unit PO DAILY 09/15/15 [History] Docusate [Colace] 200 mg PO BID 09/15/15 [History] Gabapentin [Neurontin] 1,200 mg PO TID 09/15/15 [History] Paroxetine [Paxil] 20 mg PO DAILY 09/15/15 [History] Zolpidem [Ambien] 10 mg PO HS 09/15/15 [History] Ascorbic Acid [Vitamin C] 500 mg PO DAILY@0630 #30 tab 03/17/17 [Rx] Glatiramer Acetate [Copaxone] 40 mg SQ QMWF 04/10/18 [History] Oxycodone HCl/Acetaminophen [Percocet 5-325 mg Tablet] 1 tab PO Q6H PRN 04/10/18 [History] Ferrous Sulfate 325 mg PO 0630 #30 tablet 01/07/19 [Rx] Lactobacillus [Culturelle] 1 each PO DAILY 03/27/19 [History] Amitriptyline [Elavil] 10 mg PO HS 03/28/19 [History] Biotin 1 mg PO DAILY 03/28/19 [History] Cranberry Fruit Extract [Cranberry] 250 mg PO DAILY 03/28/19 [History] Diclofenac Sodium [Voltaren] 1 applic TP 3-4XD PRN 03/28/19 [History] Efavirenz 600 mg PO DAILY 03/28/19 [History] Furosemide [Lasix] 20 mg PO DAILY 03/28/19 [History] Potassium Chloride [K-Tab ER] 20 meq PO BID 03/28/19 [History] Warfarin Sodium 2 mg PO Q48H 03/28/19 [History] Warfarin [Coumadin] 3 mg PO Q48H 03/28/19 [History] carBAMazepine [Tegretol] 200 mg PO BID 03/28/19 [History] Sulfamethoxazole/Trimeth DS [Bactrim DS] 1 each PO BID 14 Days #28 tablet 03/31/19 [Rx] Allergies/Adverse Reactions: Allergy/AdvReac Type Severity Reaction Status Date / Time atorvastatin [From Lipitor] Allergy Muscle Pain Verified 03/02/19 01:26 levofloxacin [From Levaquin] Allergy Hives Verified 03/02/19 01:26 methocarbamol [From Robaxin] Allergy Hives Verified 03/02/19 01:26 Certification: Further, I certify that my clinical findings support that this patient is homebound (i.e. absences from home require considerable and taxing effort and are for medical reasons or zoroastrian services or infrequently or short duration when for other reasons) because: Homebound Reason: Leaving home requires considerable and taxing effort due to condition Attestation: My signature below is to certify that this patient is under my care and that I, or nurse practitioner, or a physician's cosmetic sales assistant working with me, has a [id number] encounter with this patient.
[2019-03-31 12:08] VITALS: BP 111/73
[2019-03-31] MEDS ORDERED: *HR* Warfarin 2 MG TABLET PO ONE (18:00)
== END 2019-03-31 14:36 | disposition home health service (06) | DRG 871 ==
LOC: 2ANU → PREOBSVTOIN 03:53 → PREINTOOBSV 08:44 → SUATTDRO 11:21
PROVIDERS: ADMIT Internal Medicine; ATTEND Pharmacist